=== PATIENT | male | born 1990 | race Caucasian/White ===

== ENCOUNTER 2017-01-11 11:27 | Day surgery (SDC) | payer BC ==
--- NOTE | 2017-01-09 20:41 | HP ---
ADMITTING HISTORY AND PHYSICAL: DATE OF ADMISSION: 01/11/17 ADMITTING DIAGNOSES: 1. Hematuria. 2. History of retention. 3. Urethral stricture. PLANNED PROCEDURE: Internal urethrotomy and cystoscopy. SURGEON: Dr. Burns. ADMITTING HISTORY AND PHYSICAL: Sadi Brody is a 26-year-old gentleman, who I had originally evaluated in April of 2016 after an episode of urinary retention. He had a Hu catheter placed at an outside hospital at that time and when I saw him in followup, he seemed to be emptying his bladder adequately after the catheter was removed, although he did have a moderately increased residual of 88 cc. He was supposed to come back for followup at that time, but did not up until a couple of weeks ago when he returned with complaints of difficulty initiating urination and terminal hematuria. Cystoscopy revealed a [id number] stricture in the proximal bulbar urethra, which was dilated in the office. The bladder was examined and appeared normal. He is now being brought in for internal urethrotomy and cystoscopy. PAST MEDICAL HISTORY: Unremarkable. Specifically, there is no history of diabetes mellitus or any other major systemic illness. MEDICATIONS: On admission, none. ALLERGIES: No known drug allergies. REVIEW OF SYSTEMS: He denies any chest pain or shortness of breath. He is a healthy, young, active gentleman. PHYSICAL EXAMINATION VITAL SIGNS: Reveal blood pressure of 120/80; pulse 63 per minute, regular; oxygen saturation 99% on room air. LUNGS: Clear bilaterally. CARDIOVASCULAR: Regular rate and rhythm. S1, S2. ABDOMEN: Soft without masses. A Hu catheter had been placed after his recent cystoscopy and is in place draining clear urine. IMPRESSION AND PLAN: A 26-year-old gentleman with urethral stricture and a history of urinary retention. Planned procedure is internal urethrotomy and cystoscopy. [id number] #: [id number] MTDD
[~2017-01-11 11:27] MED LIST: Buffered Lidocaine 0.9% SYRIN* 5 ML/SYR SYRINGE INTRADERM ONE; Sodium Citrate/Citric Acid* 15 ML UDC PO ONE; celeCOXIB CAP* 200 MG PO ONE
[2017-01-11] MEDS ORDERED: Sodium Citrate/Citric Acid* 15 ML UDC ONE (11:34)
[2017-01-11] MEDS ORDERED: cefTRIAXone(*) 2 GM ADDV.VIAL IVPB ONE (11:34)
[2017-01-11] MEDS ORDERED: Buffered Lidocaine 0.9% SYRIN* 5 ML/SYR SYRINGE ONE (11:34)
[2017-01-11] MEDS ORDERED: celeCOXIB CAP* 100 MG ONE (11:34)
[2017-01-11] MEDS ORDERED: Lidocaine 2% JELLY* 6 ML JELLY TOPICAL ONE ×2 (12:44→14:02)
[2017-01-11] MEDS ORDERED: Lidocaine 2% JELLY* 20 ML (for OR use) ONE (12:45)
[2017-01-11] MEDS ORDERED: fentaNYL* 50 MCG/ML 2 ML VIAL (100 MCG VIAL) ONE (12:45)
[2017-01-11] MEDS ORDERED: Lidocaine 2% PF * 5 ML VIAL ONE (12:46)
[2017-01-11] MEDS ORDERED: Propofol* 10 MG/ML 20 ML BTL IV PUSH ONE (12:46)
[2017-01-11] MEDS ORDERED: Ondansetron INJ* 2 MG/ML VIAL IV PRN (13:05)
[2017-01-11] MEDS ORDERED: fentaNYL* 50 MCG/ML 2 ML VIAL (100 MCG VIAL) IV PRN (13:05)
[2017-01-11] MEDS ORDERED: HYDROcodone/ACETAMIN 5-325 MG* 1 TAB PO PRN (13:05)
[2017-01-11] MEDS ORDERED: DiMENhydriNATE IV* 50 MG/ML VIAL IV PUSH PRN (13:05)
[2017-01-11 13:39] VITALS: BP 116/80
--- NOTE | 2017-01-12 04:41 | OP ---
OPERATIVE REPORT: DATE OF OPERATION: 01/11/17 DATE OF : 86 SURGEON: Karlos Burns MD ANESTHESIOLOGIST: Troy Pollard MD ANESTHESIA: General. PRE-OP DIAGNOSES: 1. Urethral strictures. 2. Hematuria. POST-OP DIAGNOSES: 1. Urethral strictures. 2. Hematuria. OPERATIVE PROCEDURE: Internal urethrotomy and cystoscopy. INDICATIONS: Sadi Brody is a 26-year-old gentleman with history of urinary retention. He was not ed to have a stricture in the bulbar urethra, which was dilated in the office and a Hu catheter w as placed. COMPLICATIONS: None. OPERATIVE FINDINGS: 1. Stricture mid to proximal bulbar urethra (approximately 2 cm). 2. Normal-appearing bladder. CATHETER: 18-Niuean Hu. POSTOPERATIVE CONDITION: Stable. DESCRIPTION OF PROCEDURE: After induction of general anesthesia, the patient was placed in dorsal l ithotomy position. Sequential compression devices were in place and functioning. Initial examinati on of the urethra with the endoscope revealed a normal anterior urethra. In the mid to proximal bul bar urethra, there was a stricture noted, which appeared to have been dilated by the prior procedure . This extended for approximately 2 cm using an internal urethrotome with a cold knife. The strictu re was incised at the 12 o'clock position. Care was taken not to do any incision in the vicinity of the sphincter. Once the stricture had been incised, the urethrotome was advanced into the bladder easily. The urethrotome was then removed and a 23-Niuean cystoscope was introduced without difficul ty. Cystoscopy was performed. There was some expected edema and inflammation in the posterior blad sravanthi wall secondary to the indwelling Hu catheter. The remainder of the bladder was unremarkable. An 18-Niuean silicone Hu was placed without difficulty and connected to a drainage bag. The leigh arellano tolerated the procedure satisfactorily and was transferred back to the recovery area in stable condition. [id number] #: [id number]
== END 2017-01-11 14:05 | disposition home or self-care (01) ==
LOC: OR 11:27
PROVIDERS: ATTEND Urology
DX: N35.9 Urethral stricture, unspecified (principal); R31.9 Hematuria, unspecified
CPT/HCPCS: A9270-GY; J0696; J1580; J2704; J3010